=== PATIENT | female | born 1975 | race Caucasian/White ===

== ENCOUNTER 2018-11-19 20:03 | Emergency (ER) | payer OTHER ==
[~2018-11-19] VITALS: Ht 160 cm; Wt 96.8 kg
[~2018-11-19 20:03] MED LIST: NAPR250T4 PO
[2018-11-19] MEDS ORDERED: LEVO25TA9 PO (20:15)
[2018-11-19 20:51] VITALS: BP 138/90
[2018-11-19] MEDS ORDERED: IBUPROFEN 600 MG TABLET PO ONE (21:15)
[2018-11-19] MEDS ORDERED: NEOMYCIN/POLYMYXIN B/HYDROCORT 10 ML OTIC SOLUTION AS ONE (21:15)
== END 2018-11-19 21:54 | disposition home or self-care (01) ==
LOC: EMS 20:04
DX: H60.92 Unspecified otitis externa, left ear (principal); E03.9 Hypothyroidism, unspecified